=== PATIENT | female | born 1985 | race Caucasian/White ===

== ENCOUNTER 2023-02-05 20:39 | Emergency (ER) | payer BC ==
[~2023-02-05] VITALS: Ht 162.6 cm; Wt 75.0 kg
[2023-02-05 20:53] VITALS: BP 122/86
[2023-02-05] MEDS ORDERED: IBUP-1986 PO (21:42)
[2023-02-05] MEDS ORDERED: ibuprofen tablet 400 MG TABLET PO ONE (21:45)
== END 2023-02-05 21:52 | disposition home or self-care (01) ==
LOC: ER 20:40
DX: S90.02XA Contusion of left ankle, initial encounter (principal); Z88.0 Allergy status to penicillin; X50.1XXA Overexertion from prolonged static or awkward postures, initial encounter; Y93.89 Activity, other specified; Y92.89 Other specified places as the place of occurrence of the external cause; Y99.8 Other external cause status
CPT/HCPCS: 73610; 99283; L4360